=== PATIENT | male | born 1970 | race African-American/Black ===

== ENCOUNTER 2020-12-23 11:10 | Emergency (ER) | payer OTHER ==
[2020-12-23 11:27] VITALS: BP 168/92; PULSE 78; TEMP 98.6; BMI 27.2
[2020-12-23] MEDS ORDERED: KETOROLAC TROMETHAMINE 60 MG/2 ML VIAL IM ONE (12:46)
[2020-12-23] MEDS ORDERED: KETOROLAC TROMETHAMINE 30 MG/1 ML VIAL ONE (12:54)
[2020-12-23 13:27] LABS: BASO % 0.2 % (0-2.0); EOS % 0.3 % (0-4.5); HEMATOCRIT 42.8 % (35.4-49); HEMOGLOBIN 14.4 GM/dL (11.7-16.9); LYMPH % 25.9 % (8-40); MCH 30.1 pg (25.7-33.7); MCHC 33.7 g/dl (32.0-35.9); MEAN CELL VOLUME 89.3 fl (80-96); MEAN PLT VOLUME 8.5 fl (7.5-11.1); MONO % 7.4 % (3.8-10.2); NEUT % 66.2 % (42.8-82.8); PLATELET COUNT 257 10^3/uL (134-434); RBC 4.79 M/mm3 (4.00-5.60); RDW 13.9 % (11.9-15.9); WHITE BLOOD COUNT 7.6 K/mm3 (4.0-10.0)
[2020-12-23 13:30] LABS: EPI CELLS 1 /uL (0-25.1); HYALINE CASTS 0 /uL (0-3.1); PH,URINE 6.5 (5.0-8.0); URINE APPEARANCE CLEAR; URINE BACTERIA 0 /uL (0-1359); URINE BILIRUBIN NEGATIVE (NEGATIVE); URINE COLOR YELLOW; URINE GLUCOSE (UA) NEGATIVE (NEGATIVE); URINE KETONE NEGATIVE (NEGATIVE); URINE LEUK ESTERASE NEGATIVE (NEGATIVE); URINE NITRITE NEGATIVE (NEGATIVE); URINE PROTEIN 1+ (NEGATIVE); URINE RBC 1 /uL (0-23.9); URINE UROBILINOGEN 0.2 mg/dL (0.2-1.0); URINE WBC 1 /uL (0-25.8)
[2020-12-23 13:52] LABS: CALCIUM 9.2 mg/dL (8.5-10.1)
[2020-12-23 13:53] LABS: ALBUMIN 3.7 g/dl (3.4-5.0); BLOOD UREA NITROGEN 12.4 mg/dL (7-18)
[2020-12-23 13:56] LABS: CREATININE 0.9 mg/dL (0.55-1.3)
[2020-12-23 13:58] LABS: BILIRUBIN,TOTAL 0.4 mg/dL (0.2-1); TOT PROT 7.7 g/dl (6.4-8.2)
== END 2020-12-23 15:19 | disposition home or self-care (01) ==
LOC: JERFT 11:10
PROC: 3E023GC Introduction of Other Therapeutic Substance into Muscle, Percutaneous Approach (ICD-10-PCS; principal; 2020-12-23)
DX: M54.42 Lumbago with sciatica, left side (principal)
CPT/HCPCS: 36415; 74176-TC; 80053; 81003; 85025; 87086; 99284-25

== ENCOUNTER 2022-10-21 07:14 | Emergency (ER) | payer OTHER ==
[2022-10-21 07:25] VITALS: BP 143/87; PULSE 89; RESP 20; TEMP 98.6; BMI 31.1
[2022-10-21] MEDS ORDERED: ACETAMINOPHEN 325 MG TABLET (FP) PO ONE (07:33)
[2022-10-21] MEDS ORDERED: ACETAMINOPHEN 325 MG TABLET (FP) ONE (07:34)
== END 2022-10-21 08:30 | disposition home or self-care (01) ==
LOC: JERFT 07:14
DX: S50.01XA Contusion of right elbow, initial encounter (principal); M25.521 Pain in right elbow; W22.8XXA Striking against or struck by other objects, initial encounter; W06.XXXA Fall from bed, initial encounter
CPT/HCPCS: 73070-TC-RT-FY; 99283-25

== ENCOUNTER 2022-10-26 06:49 | Emergency (ER) | payer OTHER ==
[2022-10-26 06:55] VITALS: RESP 16; TEMP 98.1; BMI 30.4
[2022-10-26] MEDS ORDERED: LOSARTAN POTASSIUM 50 MG TABLET PO ONE (08:13)
[2022-10-26] MEDS ORDERED: LOSARTAN POTASSIUM 50 MG TABLET ONE (08:33)
[2022-10-26 09:39] VITALS: BP 160/103; PULSE 69
== END 2022-10-26 10:00 | disposition home or self-care (01) ==
LOC: JER 06:49
DX: S63.501A Unspecified sprain of right wrist, initial encounter (principal); M25.331 Other instability, right wrist; I10 Essential (primary) hypertension; M25.521 Pain in right elbow; R53.1 Weakness; W06.XXXA Fall from bed, initial encounter
CPT/HCPCS: 73070-TC-RT-FY; 73110-TC-RT-FY; 99283-25